=== PATIENT | female | born 1975 ===

== ENCOUNTER → 2018-01-15 21:25 | Outpatient (REF) | payer OTHER, SELFPAY ==
[2018-01-15 22:42] LABS: Hematocrit 37.5 % (36-46); Hemoglobin 12.7 g/dL (12.0-16.0); Mean Corpuscular HGB Conc 33.9 % (30-36); Mean Corpuscular Hemoglobin 30.3 PG (26-34); Mean Corpuscular Volume 89.3 fL (80-100); Platelet Count 241 X10^3/uL (150-400); Red Blood Cell Count 4.19 X10^6/uL (4.0-5.2); Red Cell Distribution Width 13.1 % (11.6-14.8); White Blood Cell Count 10.7 X10^3/uL (4.5-11.0)
[2018-01-15 22:45] LABS: Add Manual Diff / Slide Review YES
[2018-01-16 02:00] LABS: Hemoglobin A1C% w Est Avg Glu 5.8 % (4.0-6.0)
[2018-01-16 02:19] LABS: Alanine Aminotransferase 65 IU/L (9-52); Albumin 4.1 g/dL (3.5-5.0); Albumin Globulin Ratio 1.5 (1.0-2.8); Alkaline Phosphatase 55 U/L (38-126); Aspartate Aminotransferase 30 IU/L (14-36); Bilirubin Total 0.2 mg/dL (0.2-1.3); Blood Urea Nitrogen 16 mg/dL (7-17); Calcium 8.8 mg/dL (8.4-10.2); Carbon Dioxide 24 mmol/L (22-32); Chloride 104 mmol/L (98-107); Estimated Glomerular Filt Rate > 60.0 mL/min (>60); Globulin 2.8 g/dL (1.7-4.1); Glucose 75 mg/dL (70-100); HEMOLYSIS < 15 (0-50); Sodium 142 mmol/L (137-145); Total Protein 6.9 g/dL (6.3-8.2)
[2018-01-16 02:21] LABS: Free T3, Triiodothyronine Free 3.64 pg/mL (2.77-5.27); Free T4, Direct Thyroxine 1.26 ng/dL (0.78-2.19)
[2018-01-16 02:35] LABS: Thyroid Stimulating Hormone 2.04 uIU/mL (0.47-4.68)
[2018-01-16 02:53] LABS: Ferritin 30.5 ng/mL (6.27-137)
[2018-01-16 05:01] LABS: RBC Morphology Normal Morphology
[2018-01-17 14:57] LABS: Dehydroepiandrosterone Sulfate 256 mcg/dL (23-266)
[2018-01-17 16:39] LABS: Progesterone 0.6 ng/mL
[2018-01-18 18:18] LABS: Estrogen 161.1 pg/mL
[2018-01-20 03:34] LABS: Testosterone Free 5.8 pg/mL (0.1-6.4); Testosterone Total 28 ng/dL (2-45)
== END ==
LOC: LAB 21:25
PROVIDERS: Visit Provider Naturopath
DX: R53.83 Other fatigue (principal); Z13.89 Encounter for screening for other disorder; F43.23 Adjustment disorder with mixed anxiety and depressed mood; R63.5 Abnormal weight gain; G47.33 Obstructive sleep apnea (adult) (pediatric)
CPT/HCPCS: 80053; 82627; 82672; 82728; 83036; 84144; 84402; 84403; 84439; 84443; 84481; 85025